=== PATIENT | female | born 1995 | race Caucasian/White ===

== ENCOUNTER 2016-09-02 01:34 | Outpatient (CLI) | payer OTHER ==
[~2016-09-02] VITALS: Ht 162.6 cm; Wt 98.4 kg
[2016-09-02] MEDS ORDERED: PRENATAL TABLE1 EAC3 PO (02:11)
[2016-09-02] MEDS ORDERED: FLINTSTONES GU1 EACH PO (02:12)
[2016-09-02 02:22] VITALS: BP 131/84
[2016-09-02 03:04] VITALS: BP 121/70
[2016-09-02 05:54] VITALS: BP 123/70
== END 2016-09-02 06:20 | disposition home or self-care (01) ==
LOC: LDRP-OP → 2WEST 01:35 → LDRP-OP 10-10 20:18
DX: O47.1 False labor at or after 37 completed weeks of gestation (principal); Z3A.39 39 weeks gestation of pregnancy; Z87.891 Personal history of nicotine dependence
CPT/HCPCS: 59025; G0378; J7120

== ENCOUNTER 2016-09-02 19:20 | Inpatient (IN) | payer OTHER ==
[~2016-09-02] VITALS: Ht 162.6 cm; Wt 98.4 kg
[2016-09-02] VITALS (7 sets, daily range): BP systolic 124–167; BP diastolic 65–84
[~2016-09-02 19:20] MED LIST: FLINTSTONES GU1 EACH PO; PRENATAL TABLE1 EAC3 PO
[2016-09-02 21:23] LABS: EOSINOPHIL (%) 0 % (0-5); HEMATOCRIT 37.2 % (36.0-46.0); IMMATURE GRANULOCYTE (%) 0.6 % (0.0-0.7); IMMATURE GRANULOCYTE COUNT 0.1 K/uL; LYMPHOCYTE COUNT 1.6 K/uL (1.0-2.8); MCH 29.2 PG (29.0-34.0); MCHC 32.5 G/DL (30.0-36.0); MCV 89.6 FL (83-99); MEAN PLAT.VOLUME 11.4 uM^3 (9.5-12.4); MONOCYTE (%) 6.5 % (3-12); MONOCYTE COUNT 1.2 K/uL (0-0.8); NEUTROPHIL (%) 84.1 % (45-76); PLATELET COUNT 211 K/uL (156-360); RBC DIS.WIDTH-CV 13.3 % (11.8-14.6); RBC DIS.WIDTH-SD 43.6 % (39-53); RED BLOOD COUNT 4.15 M/uL (3.80-5.20); WHITE BLOOD COUNT 17.8 K/uL (4.1-10.2)
[2016-09-02 21:38] LABS: ALKALINE PHOSPHATASE 91 IU/L (3-129); ANION GAP 14 MEQ/L (2-14); CHLORIDE 103 MEQ/L (99-109); GFR ESTIMATE (CALCULATED) > 59 mL/min/; GLUCOSE 115 mg/dL (70-99); LACTATE DEHYDROGENASE 123 IU/L (20-246); POTASSIUM 3.6 MEQ/L (3.7-5.4); SAMPLE HEMOLYSIS CHECK 0; SAMPLE ICTERIC CHECK 0; SAMPLE LIPEMIA CHECK 0; SODIUM 135 MEQ/L (136-147); TOTAL BILIRUBIN 0.8 MG/DL (0.0-1.0); UREA NITROGEN (BUN) 5 mg/dL (9-23); URIC ACID 4.3 mg/dL (3.1-9.2)
[2016-09-02 21:40] LABS: ADD MIUA? YES; BILIRUBIN NEGATIVE; BLOOD MODERATE; COLOR YELLOW ((YELLOW)); GLUCOSE (STRIP) NEGATIVE; KETONES 80; LEUKOCYTES LARGE; NITRITE NEGATIVE; PROTEIN (STRIP) 30; SPECIFIC GRAVITY 1.024 (1.000-1.030); UROBILINOGEN 0.2 MG/DL (0.2-1.0)
[2016-09-02 21:57] LABS: EPITHELIAL CELLS 2+ /HPF; MUCUS 3+ /LPF
[2016-09-02 21:58] LABS: BACTERIA 2+ /HPF; CASTS NONE SEEN /LPF; CRYSTALS NONE SEEN; UCUL ADDED? YES; UR CREATININE CONCENTRATION 205.8 MG/DL
[2016-09-02 21:59] LABS: AMPHETAMINES QUANT VALUE 0 NG/ML; BARBITUATES QUANT VALUE 0 NG/ML; BENZODIAZEPINES QUANT VALUE 0 NG/ML; BENZODIAZEPINES, URINE SCREEN Negative (200 ng/mL); OPIATES QUANTITATIVE VALUE 0 NG/ML; PHENCYCLIDINE QUANT VALUE 0 NG/ML
[2016-09-03] VITALS (28 sets, daily range): BP systolic 105–168; BP diastolic 50–103
[2016-09-04 06:51] LABS: EOSINOPHIL (%) 0.4 % (0-5); EOSINOPHIL COUNT 0.1 K/uL (0-0.3); HEMATOCRIT 30.9 % (36.0-46.0); IMMATURE GRANULOCYTE (%) 0.7 % (0.0-0.7); IMMATURE GRANULOCYTE COUNT 0.1 K/uL; LYMPHOCYTE COUNT 2.5 K/uL (1.0-2.8); MCH 28.9 PG (29.0-34.0); MCV 90.4 FL (83-99); MEAN PLAT.VOLUME 11.3 uM^3 (9.5-12.4); MONOCYTE (%) 10.1 % (3-12); MONOCYTE COUNT 1.5 K/uL (0-0.8); NEUTROPHIL (%) 72.4 % (45-76); PLATELET COUNT 152 K/uL (156-360); RBC DIS.WIDTH-CV 13.5 % (11.8-14.6); RBC DIS.WIDTH-SD 44.6 % (39-53); RED BLOOD COUNT 3.42 M/uL (3.80-5.20); WHITE BLOOD COUNT 15.2 K/uL (4.1-10.2)
[2016-09-04 22:47] VITALS: BP 120/63
[2016-09-05 07:24] VITALS: BP 116/67
[2016-09-05] MEDS ORDERED: FERROUS SULFAT325 MG PO (12:06)
[2016-09-05 16:00] VITALS: BP 118/71
== END 2016-09-05 17:48 | disposition home or self-care (01) | DRG 641 ==
LOC: LDRP-OP 19:20 → 2WEST 19:21 → LDRP-OP 10-10 06:29
PROVIDERS: Advanced Practice Midwife
PROC: 10907ZC Drainage of Amniotic Fluid, Therapeutic from Products of Conception, Via Natural or Artificial Opening (ICD-10-PCS; principal; 2016-09-03)
PROC: 00HU33Z Insertion of Infusion Device into Spinal Canal, Percutaneous Approach (ICD-10-PCS; principal; 2016-09-03)
PROC: 3E0R3CZ (ICD-10-PCS; principal; 2016-09-03)
PROC: 10E0XZZ Delivery of Products of Conception, External Approach (ICD-10-PCS; principal; 2016-09-03)
DX: E66.9 Obesity, unspecified (principal); O99.344 Other mental disorders complicating childbirth; R56.9 Unspecified convulsions; F32.9 Major depressive disorder, single episode, unspecified; F41.9 Anxiety disorder, unspecified; O99.214 Obesity complicating childbirth; O70.0 First degree perineal laceration during delivery; Z68.30 Body mass index [BMI] 30.0-30.9, adult; Z3A.39 39 weeks gestation of pregnancy; Z37.0 Single live birth
CPT/HCPCS: 59025; 80053; 80306 90; 81003; 82570; 83615; 84156; 84550; 85025; 87086; C1755; G0378; J0595; J3010; J7120; S0020